=== PATIENT | male | born 1970 | race Caucasian/White ===

== ENCOUNTER 2016-10-01 02:13 | Emergency (ER) | payer MEDICAID ==
[~2016-10-01] VITALS: Ht 182.9 cm; Wt 141.0 kg
[2016-10-01] MEDS ORDERED: SODIUM CHLORIDE 0.9% 1,000 ML IV ONE (02:44)
[2016-10-01 02:58] LABS: BASOPHILS % 0.6 % (0.0-2.0); DIFFERENTIAL COMMENT 1; EOSINOPHILS % 2.6 % (0.0-5.0); HEMOGLOBIN. 9.5 g/dL (14.0-18.0); LYMPHOCYTES % 35.2 % (20.0-50.0); MEAN CORPUSCULAR HEMOGLOBIN 22.4 pg (28.0-32.0); MEAN CORPUSCULAR HGB CONC 31.5 g/dL (31.0-37.0); MEAN CORPUSCULAR VOLUME 70.9 fL (80.0-94.0); MEAN PLATELET VOLUME 6.5 fl (7.4-10.4); MONOCYTES % 6.4 % (2.0-8.0); NEUTROPHILS % 55.2 % (40.0-76.0); PLATELET 307 x1000/uL (130-400); RED BLOOD CELL COUNT 4.23 mill/uL (4.7-6.1); WHITE BLOOD COUNT 6.9 x1000/uL (4.5-11.0)
[2016-10-01 02:59] LABS: ADD RBC MORPHOLOGY YES
[2016-10-01 03:10] LABS: PLATELET ESTIMATE NORMAL
[2016-10-01 03:12] LABS: ANISOCYTOSIS 1+
[2016-10-01 03:13] LABS: INR 1.1; PROTHROMBIN TIME 11.4 sec
[2016-10-01 03:25] LABS: CLARITY URINE CLEAR (CLEAR); COLOR URINE YELLOW (YELLOW); GLUCOSE URINE NEGATIVE (NEGATIVE); KETONES URINE NEGATIVE (NEGATIVE); LEUKOCYTE ESTERASE URINE NEGATIVE (NEGATIVE); NITRITE URINE NEGATIVE (NEGATIVE); OCCULT BLOOD URINE NEGATIVE (NEGATIVE); PH URINE 5.5 (4.5-8.0); PROTEIN URINE NEGATIVE (NEGATIVE); SPECIFIC GRAVITY URINE 1.006 (1.005-1.030); UROBILINOGEN URINE 0.2 E.U./dL (0.2-1.0)
[2016-10-01 03:26] LABS: ALANINE AMINOTRANSFERASE 31 IU/L (13-61); ALBUMIN 3.5 g/dL (3.4-5.0); ANION GAP 14; CARBON DIOXIDE 27 mEq/L (21-32); CHLORIDE 99 mEq/L (98-107); ETHANOL BLOOD 182 mg/dL; INDEX HEMOLYSI 1 (1-3); INDEX ICTERIC 1 (1-4); INDEX LIPEMIC 1 (1-3); LIPASE 216 IU/L (73-393); UREA NITROGEN BLOOD 15 mg/dL (7-21); eGFR > 60 mL/min (>60)
[2016-10-01 04:54] VITALS: BP 117/71
[2016-10-01] MEDS ORDERED: IOHEXOL-300 100 ML BOTTLE ONE (11:20)
[2016-10-01] MEDS ORDERED: SODIUM CHLORIDE 0.9% 10ML VIAL ONE (11:20)
== END 2016-10-01 07:17 | disposition home or self-care (01) ==
LOC: EDUNIT# 02:13 → ER 02:13
DX: F10.129 Alcohol abuse with intoxication, unspecified (principal); I10 Essential (primary) hypertension; G20 Parkinson's disease; E11.9 Type 2 diabetes mellitus without complications; F12.10 Cannabis abuse, uncomplicated
CPT/HCPCS: 36415; 74177; 80053; 81003; 83690; 85025; 85610; 99285; A4216; C1893; G0482; J7030; Q9967; Z7610

== ENCOUNTER 2016-10-02 14:18 | Emergency (ER) | payer MEDICAID ==
[~2016-10-02] VITALS: Ht 177.8 cm; Wt 120.0 kg
[2016-10-02] MEDS ORDERED: ACETAMINOPHEN 325MG TABLET PO STA (16:23)
[2016-10-02] MEDS ORDERED: MAGNESIUM/ALUMINUM HYDROXIDE/SIMETHICONE 30ML UDC PO STA (16:23)
[2016-10-02] MEDS ORDERED: VISCOUS LIDOCAINE 2% 15 ML UDC PO STA (16:23)
[2016-10-02 17:52] VITALS: BP 124/64
== END 2016-10-02 17:58 | disposition home or self-care (01) ==
LOC: ER 14:41
DX: F10.129 Alcohol abuse with intoxication, unspecified (principal); R10.30 Lower abdominal pain, unspecified; I10 Essential (primary) hypertension; E11.9 Type 2 diabetes mellitus without complications; F12.10 Cannabis abuse, uncomplicated
CPT/HCPCS: 99284

== ENCOUNTER 2016-10-02 22:05 | Emergency (ER) | payer MEDICAID ==
[~2016-10-02] VITALS: Ht 185.4 cm; Wt 93.0 kg
[2016-10-03 00:34] LABS: CHLORIDE 109 mEq/L (98-107); INDEX HEMOLYSI 3 (1-3); INDEX ICTERIC 1 (1-4); INDEX LIPEMIC 1 (1-3)
[2016-10-03 00:44] LABS: ALANINE AMINOTRANSFERASE 24 IU/L (13-61); ALBUMIN 3.2 g/dL (3.4-5.0); ANION GAP 12; CALCIUM 8.1 mg/dL (8.5-10.1); CARBON DIOXIDE 25 mEq/L (21-32); ETHANOL BLOOD 204 mg/dL; LIPASE 161 IU/L (73-393); UREA NITROGEN BLOOD 9 mg/dL (7-21); eGFR > 60 mL/min (>60)
[2016-10-03] MEDS ORDERED: FAMOTIDINE 20MG TABLET PO ONE ×2 (01:15→06:30)
[2016-10-03 01:17] LABS: BASOPHILS % 0.5 % (0.0-2.0); EOSINOPHILS % 2.6 % (0.0-5.0); HEMATOCRIT. 27.9 % (42.0-52.0); HEMOGLOBIN. 8.9 g/dL (14.0-18.0); LYMPHOCYTES % 43.2 % (20.0-50.0); MEAN CORPUSCULAR HEMOGLOBIN 22.9 pg (28.0-32.0); MEAN CORPUSCULAR HGB CONC 31.9 g/dL (31.0-37.0); MEAN CORPUSCULAR VOLUME 71.7 fL (80.0-94.0); MEAN PLATELET VOLUME 6.6 fl (7.4-10.4); MONOCYTES % 8.6 % (2.0-8.0); NEUTROPHILS % 45.1 % (40.0-76.0); PLATELET 294 x1000/uL (130-400); RED BLOOD CELL COUNT 3.89 mill/uL (4.7-6.1); RED CELL DISTRIBUTION WIDTH 27.4 % (11.6-14.6)
[2016-10-03 01:21] LABS: CLARITY URINE CLEAR (CLEAR); COLOR URINE YELLOW (YELLOW); GLUCOSE URINE NEGATIVE (NEGATIVE); KETONES URINE NEGATIVE (NEGATIVE); LEUKOCYTE ESTERASE URINE NEGATIVE (NEGATIVE); NITRITE URINE NEGATIVE (NEGATIVE); OCCULT BLOOD URINE NEGATIVE (NEGATIVE); PROTEIN URINE NEGATIVE (NEGATIVE); SPECIFIC GRAVITY URINE 1.014 (1.005-1.030); UROBILINOGEN URINE 0.2 E.U./dL (0.2-1.0)
[2016-10-03 01:23] LABS: INR 1.1; PROTHROMBIN TIME 11.3 sec
[2016-10-03 01:25] LABS: DIFFERENTIAL COMMENT 1
[2016-10-03 01:31] LABS: *AMPHETAMINES SCREEN URINE NEGATIVE (NEGATIVE); *BARBITURATES SCREEN URINE NEGATIVE (NEGATIVE); *BENZODIAZEPINES SCREEN URINE PRESUMTIVE POSITIVE (NEGATIVE); *COCAINE SCREEN URINE NEGATIVE (NEGATIVE); CANNABINOID URINE SCREEN PRESUMTIVE POSITIVE (NEGATIVE); ECSTASY MDMA SCREEN URINE NEGATIVE (NEGATIVE); METHADONE URINE SCREEN NEGATIVE (NEGATIVE); OPIATES URINE SCREEN NEGATIVE (NEGATIVE); PHENCYCLIDINE URINE SCREEN NEGATIVE (NEGATIVE)
[2016-10-03] MEDS ORDERED: MAGNESIUM/ALUMINUM HYDROXIDE/SIMETHICONE 30ML UDC PO ONE (02:15)
[2016-10-03 05:44] LABS: BASOPHILS % 0.6 % (0.0-2.0); EOSINOPHILS % 3.7 % (0.0-5.0); HEMATOCRIT. 28.7 % (42.0-52.0); LYMPHOCYTES % 36.8 % (20.0-50.0); MEAN CORPUSCULAR HEMOGLOBIN 22.9 pg (28.0-32.0); MEAN CORPUSCULAR HGB CONC 31.4 g/dL (31.0-37.0); MEAN PLATELET VOLUME 6.7 fl (7.4-10.4); MONOCYTES % 10.5 % (2.0-8.0); NEUTROPHILS % 48.4 % (40.0-76.0); PLATELET 285 x1000/uL (130-400); RED BLOOD CELL COUNT 3.94 mill/uL (4.7-6.1); RED CELL DISTRIBUTION WIDTH 26.3 % (11.6-14.6); WHITE BLOOD COUNT 4.3 x1000/uL (4.5-11.0)
[2016-10-03 05:48] LABS: DIFFERENTIAL COMMENT 1
[2016-10-03] MEDS ORDERED: LORAZEPAM 2MG/ML CPJ IM ONE (06:45)
[2016-10-03] MEDS ORDERED: KETOROLAC 60MG/2ML VIAL IM ONE (06:45)
[2016-10-03 07:30] VITALS: BP 128/72
[2016-10-04] MEDS ORDERED: SODIUM CHLORIDE 0.9% 1,000 ML IV ONE (12:42)
[2016-10-04] MEDS ORDERED: ONDANSETRON HCL 4MG/2ML VIAL IV STA (12:42)
[2016-10-04] MEDS ORDERED: FOLIC ACID 1 MG, THIAMINE HCL 100 MG, MVI, ADULT NO.1 10 ML in DEXTROSE 5% WATER 1,000 ML IV ONE ×4 (12:45)
[2016-10-04 13:24] LABS: BASOPHILS % 0.6 % (0.0-2.0); EOSINOPHILS % 0.6 % (0.0-5.0); HEMATOCRIT. 29.1 % (42.0-52.0); HEMOGLOBIN. 9.3 g/dL (14.0-18.0); LYMPHOCYTES % 24.3 % (20.0-50.0); MEAN CORPUSCULAR HEMOGLOBIN 23.2 pg (28.0-32.0); MEAN CORPUSCULAR HGB CONC 31.9 g/dL (31.0-37.0); MEAN CORPUSCULAR VOLUME 72.7 fL (80.0-94.0); MEAN PLATELET VOLUME 6.2 fl (7.4-10.4); MONOCYTES % 8.8 % (2.0-8.0); NEUTROPHILS % 65.7 % (40.0-76.0); PLATELET 283 x1000/uL (130-400); RED CELL DISTRIBUTION WIDTH 26.3 % (11.6-14.6); WHITE BLOOD COUNT 6.8 x1000/uL (4.5-11.0)
[2016-10-04 13:25] LABS: ADD RBC MORPHOLOGY YES; DIFFERENTIAL COMMENT 1
[2016-10-04 13:30] LABS: INR 1.1; PROTHROMBIN TIME 11.4 sec
[2016-10-04 13:38] LABS: ACETAMINOPHEN < 2 ug/mL (10-30); ALANINE AMINOTRANSFERASE 22 IU/L (13-61); ALBUMIN 3.4 g/dL (3.4-5.0); ANION GAP 14; CALCIUM 8.3 mg/dL (8.5-10.1); CARBON DIOXIDE 26 mEq/L (21-32); CHLORIDE 106 mEq/L (98-107); CREATINE KINASE 250 IU/L (39-308); ETHANOL BLOOD 225 mg/dL; INDEX HEMOLYSI 1 (1-3); INDEX ICTERIC 1 (1-4); INDEX LIPEMIC 1 (1-3); LIPASE 164 IU/L (73-393); UREA NITROGEN BLOOD 10 mg/dL (7-21); eGFR > 60 mL/min (>60)
[2016-10-04 13:44] LABS: ANISOCYTOSIS 2+; HYPOCHROMASIA 1+; PLATELET ESTIMATE NORMAL
[2016-10-04 13:45] LABS: THYROID STIMULATING HORMONE 0.56 uIU/mL (0.36-3.74)
== END 2016-10-03 07:55 | disposition home or self-care (01) ==
LOC: ER 22:05
DX: F10.129 Alcohol abuse with intoxication, unspecified (principal); R10.13 Epigastric pain; R11.2 Nausea with vomiting, unspecified; F41.9 Anxiety disorder, unspecified; E11.9 Type 2 diabetes mellitus without complications; I10 Essential (primary) hypertension; G20 Parkinson's disease; F12.10 Cannabis abuse, uncomplicated; Y90.8 Blood alcohol level of 240 mg/100 ml or more
CPT/HCPCS: 36415; 71010; 76700; 80053; 80305; 81003; 82962; 83690; 85025; 85610; 93005; 96372; 99285; G0482; J1885; J2060; Z7610

== ENCOUNTER 2016-10-03 12:02 | Emergency (ER) | payer MEDICAID ==
[~2016-10-03] VITALS: Ht 180.3 cm; Wt 160.0 kg
[2016-10-03] MEDS ORDERED: LORAZEPAM 1MG TABLET PO ONE ×2 (13:00→14:45)
[2016-10-04 05:00] VITALS: BP 140/88
== END 2016-10-04 05:50 | disposition home or self-care (01) ==
LOC: ER 12:33
DX: F10.129 Alcohol abuse with intoxication, unspecified (principal); E11.9 Type 2 diabetes mellitus without complications; I10 Essential (primary) hypertension; F12.10 Cannabis abuse, uncomplicated
CPT/HCPCS: 36415; 99283; G0482; 99284

== ENCOUNTER 2016-10-05 01:01 | Emergency (ER) | payer MEDICAID ==
[~2016-10-05] VITALS: Ht 175.3 cm; Wt 122.0 kg
[2016-10-05 06:40] VITALS: BP 97/55
== END 2016-10-05 08:47 | disposition left against medical advice (07) ==
LOC: ER 01:09
DX: F10.129 Alcohol abuse with intoxication, unspecified (principal); Z87.19 Personal history of other diseases of the digestive system
CPT/HCPCS: 36415; 99283; G0482

== ENCOUNTER 2016-10-05 11:22 | Emergency (ER) | payer MEDICAID ==
[~2016-10-05] VITALS: Ht 175.3 cm; Wt 110.0 kg
[2016-10-05 12:41] VITALS: BP 128/78
== END 2016-10-05 15:33 | disposition home or self-care (01) ==
LOC: ER 11:33
DX: F10.129 Alcohol abuse with intoxication, unspecified (principal); Y90.8 Blood alcohol level of 240 mg/100 ml or more; Z87.19 Personal history of other diseases of the digestive system
CPT/HCPCS: 36415; 99283; G0482

== ENCOUNTER 2016-10-05 18:30 | Emergency (ER) | payer MEDICAID ==
[~2016-10-05] VITALS: Ht 177.8 cm; Wt 102.0 kg
[2016-10-05] MEDS ORDERED: SODIUM CHLORIDE 0.9% 1,000 ML IV ONE (19:37)
[2016-10-06 04:47] VITALS: BP 110/64
== END 2016-10-06 06:10 | disposition home or self-care (01) ==
LOC: ER 18:30
DX: F10.229 Alcohol dependence with intoxication, unspecified (principal); Y90.8 Blood alcohol level of 240 mg/100 ml or more; F12.10 Cannabis abuse, uncomplicated; F19.10 Other psychoactive substance abuse, uncomplicated; D50.9 Iron deficiency anemia, unspecified; E83.51 Hypocalcemia
CPT/HCPCS: 99283; J7030

== ENCOUNTER 2016-10-06 09:21 | Emergency (ER) | payer MEDICAID ==
[~2016-10-06] VITALS: Ht 177.8 cm; Wt 120.0 kg
[2016-10-06 10:00] VITALS: BP 125/80
[2016-10-06 10:45] LABS: BASOPHILS % 0.5 % (0.0-2.0); EOSINOPHILS % 1.5 % (0.0-5.0); HEMATOCRIT. 32.6 % (42.0-52.0); LYMPHOCYTES % 31.6 % (20.0-50.0); MEAN CORPUSCULAR HEMOGLOBIN 22.3 pg (28.0-32.0); MEAN CORPUSCULAR HGB CONC 30.8 g/dL (31.0-37.0); MEAN CORPUSCULAR VOLUME 72.4 fL (80.0-94.0); MEAN PLATELET VOLUME 6.1 fl (7.4-10.4); MONOCYTES % 11.4 % (2.0-8.0); PLATELET 327 x1000/uL (130-400); RED CELL DISTRIBUTION WIDTH 26.7 % (11.6-14.6); WHITE BLOOD COUNT 4.6 x1000/uL (4.5-11.0)
[2016-10-06 10:48] LABS: CHLORIDE 107 mEq/L (98-107); INDEX HEMOLYSI 1 (1-3); INDEX ICTERIC 1 (1-4); INDEX LIPEMIC 1 (1-3)
[2016-10-06 10:58] LABS: ALANINE AMINOTRANSFERASE 30 IU/L (13-61); ALBUMIN 3.7 g/dL (3.4-5.0); ANION GAP 12; CALCIUM 8.9 mg/dL (8.5-10.1); CARBON DIOXIDE 31 mEq/L (21-32); ETHANOL BLOOD 296 mg/dL; UREA NITROGEN BLOOD 6 mg/dL (7-21); eGFR > 60 mL/min (>60)
[2016-10-06 11:10] LABS: ADD RBC MORPHOLOGY YES; DIFFERENTIAL COMMENT 1
[2016-10-06 11:12] LABS: ANISOCYTOSIS 2+; PLATELET ESTIMATE NORMAL
== END 2016-10-06 11:58 | disposition left against medical advice (07) ==
LOC: ER 09:24
DX: F10.229 Alcohol dependence with intoxication, unspecified (principal); R03.0 Elevated blood-pressure reading, without diagnosis of hypertension; Z87.19 Personal history of other diseases of the digestive system
CPT/HCPCS: 36415; 80053; 85025; 99284; G0482

== ENCOUNTER 2016-10-06 13:44 | Emergency (ER) | payer MEDICAID ==
[~2016-10-06] VITALS: Ht 177.8 cm; Wt 120.0 kg
[2016-10-06 13:51] VITALS: BP 122/84
== END 2016-10-06 19:30 | disposition left against medical advice (07) ==
LOC: ER 14:02
DX: F10.229 Alcohol dependence with intoxication, unspecified (principal); Z53.21 Procedure and treatment not carried out due to patient leaving prior to being seen by health care provider

== ENCOUNTER 2018-12-24 19:21 | Emergency (ER) | payer MEDICAID ==
[~2018-12-24] VITALS: Ht 177.8 cm; Wt 125.0 kg
[~2018-12-24 19:21] MED LIST: ALPR0.5T PO; BUSP-29 PO; CYAN500T4 PO; FERR325T6 PO; FISH PO; FLUO20CA33 MT; GABA-290 PO; MULT-1203 PO; PROP20TA7 PO; REQ2 PO
[2018-12-24] MEDS ORDERED: SODIUM CHLORIDE 0.9% 1,000 ML IV ONE ×2 (19:39→20:17)
[2018-12-24] MEDS ORDERED: MORPHINE SULFATE 4 MG/ML CPJ (NOT FOR IM USE) IV STA (20:17)
[2018-12-24] MEDS ORDERED: ONDANSETRON HCL 4MG/2ML INJ IV STA (20:17)
[2018-12-24] MEDS ORDERED: DIATR MEGLU/DIATRIZOATE SOLN 30ML ONE (20:29)
[2018-12-24 20:57] LABS: CLARITY URINE CLEAR (CLEAR); COLOR URINE YELLOW (YELLOW); KETONES URINE NEGATIVE (NEGATIVE); LEUKOCYTE ESTERASE URINE NEGATIVE (NEGATIVE); NITRITE URINE NEGATIVE (NEGATIVE); OCCULT BLOOD URINE NEGATIVE (NEGATIVE); PH URINE 5.5 (4.5-8.0); PROTEIN URINE NEGATIVE (NEGATIVE); SPECIFIC GRAVITY URINE 1.004 (1.005-1.030); UROBILINOGEN URINE 0.2 E.U./dL (0.2-1.0)
[2018-12-24 21:07] LABS: *AMPHETAMINES SCREEN URINE NEGATIVE (NEGATIVE); *BARBITURATES SCREEN URINE PRESUMTIVE POSITIVE (NEGATIVE); *BENZODIAZEPINES SCREEN URINE PRESUMTIVE POSITIVE (NEGATIVE); *COCAINE SCREEN URINE NEGATIVE (NEGATIVE); METHADONE URINE SCREEN NEGATIVE (NEGATIVE)
[2018-12-24 21:08] LABS: CANNABINOID URINE SCREEN NEGATIVE (NEGATIVE); OPIATES URINE SCREEN PRESUMTIVE POSITIVE (NEGATIVE); PHENCYCLIDINE URINE SCREEN NEGATIVE (NEGATIVE)
[2018-12-25 00:36] LABS: CHLORIDE 106 mEq/L (98-107)
[2018-12-25 00:39] LABS: ETHANOL BLOOD 33 mg/dL
[2018-12-25] MEDS ORDERED: FAMOTIDINE 20MG/2ML VIAL IV ONE (02:15)
[2018-12-25 05:07] LABS: BASOPHILS % 0.5 % (0.0-2.0); EOSINOPHILS % 7.3 % (0.0-5.0); HEMATOCRIT. 35.1 % (42.0-52.0); HEMOGLOBIN. 11.8 g/dL (14.0-18.0); LYMPHOCYTES % 35.4 % (20.0-50.0); MEAN CORPUSCULAR HEMOGLOBIN 27.8 pg (28.0-32.0); MEAN CORPUSCULAR VOLUME 82.4 fL (80.0-94.0); MEAN PLATELET VOLUME 6.8 fl (7.4-10.4); MONOCYTES % 10.3 % (2.0-8.0); NEUTROPHILS % 46.5 % (40.0-76.0); PLATELET 173 x1000/uL (130-400); RED BLOOD CELL COUNT 4.26 mill/uL (4.7-6.1); RED CELL DISTRIBUTION WIDTH 15.8 % (11.6-14.6)
[2018-12-25] MEDS ORDERED: MORPHINE SULFATE 4 MG/ML CPJ (NOT FOR IM USE) IV ONE (05:30)
[2018-12-25] MEDS ORDERED: ONDANSETRON HCL 4MG/2ML INJ IV ONE (05:30)
[2018-12-25] MEDS ORDERED: ACETAMINOPHEN 325MG TABLET PO PRN (05:45)
[2018-12-25 06:06] VITALS: BP 119/62
== END 2018-12-26 14:34 | disposition left against medical advice (07) ==
LOC: ER 19:21 → EDBEDREQTM 12-25 06:09 → EDBEDREQ 12-25 06:09 → ENRESERV 12-25 12:34 → CANRESERV 12-25 13:59 → CANBEDREQ 12-25 14:50 → ER 12-26 14:34
DX: F10.229 Alcohol dependence with intoxication, unspecified (principal); F13.10 Sedative, hypnotic or anxiolytic abuse, uncomplicated; F11.10 Opioid abuse, uncomplicated; I10 Essential (primary) hypertension; G20 Parkinson's disease; Z79.899 Other long term (current) drug therapy; Y90.1 Blood alcohol level of 20-39 mg/100 ml
CPT/HCPCS: 36415; 71045; 74176; 80305; 81003; 93005; 96374; 96375; 96376; 99284; J2270; J2405; J3490; J7030; Q9963

== ENCOUNTER 2019-04-23 17:36 | Emergency (ER) | payer MEDICAID ==
[~2019-04-23] VITALS: Ht 188 cm; Wt 111.0 kg
[~2019-04-23 17:36] MED LIST changes: -CYAN500T4 PO; +CYAN500T66 PO
[2019-04-23] MEDS ORDERED: FAMOTIDINE 20MG/2ML VIAL IV ONE (19:00)
[2019-04-23] MEDS ORDERED: SODIUM CHLORIDE 0.9% 1,000 ML IV ONE (19:00)
[2019-04-23 19:19] LABS: CLARITY URINE CLEAR (CLEAR); COLOR URINE YELLOW (YELLOW); KETONES URINE NEGATIVE (NEGATIVE); LEUKOCYTE ESTERASE URINE NEGATIVE (NEGATIVE); NITRITE URINE NEGATIVE (NEGATIVE); OCCULT BLOOD URINE NEGATIVE (NEGATIVE); PROTEIN URINE NEGATIVE (NEGATIVE); SPECIFIC GRAVITY URINE 1.006 (1.005-1.030); UROBILINOGEN URINE 0.2 E.U./dL (0.2-1.0)
[2019-04-23 23:29] LABS: CHLORIDE 114 mEq/L (98-107)
[2019-04-23 23:30] LABS: BASOPHILS % 0.4 % (0.0-2.0); EOSINOPHILS % 5.9 % (0.0-5.0); HEMATOCRIT. 35.4 % (42.0-52.0); HEMOGLOBIN. 11.7 g/dL (14.0-18.0); LYMPHOCYTES % 40.9 % (20.0-50.0); MEAN CORPUSCULAR HEMOGLOBIN 29.6 pg (28.0-32.0); MEAN CORPUSCULAR VOLUME 89.2 fL (80.0-94.0); MEAN PLATELET VOLUME 6.4 fl (7.4-10.4); MONOCYTES % 10.6 % (2.0-8.0); NEUTROPHILS % 42.2 % (40.0-76.0); PLATELET 163 x1000/uL (130-400); RED BLOOD CELL COUNT 3.97 mill/uL (4.7-6.1); RED CELL DISTRIBUTION WIDTH 17.1 % (11.6-14.6)
[2019-04-23 23:34] LABS: ETHANOL BLOOD 108 mg/dL
[2019-04-24 01:24] VITALS: BP 122/75
== END 2019-04-24 01:41 | disposition home or self-care (01) ==
LOC: ER 17:36
DX: F10.129 Alcohol abuse with intoxication, unspecified (principal); E86.0 Dehydration; I11.9 Hypertensive heart disease without heart failure; A15.9 Respiratory tuberculosis unspecified; Z79.899 Other long term (current) drug therapy; Y90.9 Presence of alcohol in blood, level not specified
CPT/HCPCS: 36415; 80053; 80320; 81003; 82962; 83690; 85025; 96361; 96374; 99283; J3490; J7030; G0480

== ENCOUNTER 2019-04-24 03:19 | Emergency (ER) | payer MEDICAID ==
[~2019-04-24] VITALS: Ht 185.4 cm; Wt 120.0 kg
[2019-04-24 03:54] VITALS: BP 108/53
== END 2019-04-24 05:15 | disposition home or self-care (01) ==
LOC: ER 03:19
DX: F10.239 Alcohol dependence with withdrawal, unspecified (principal); G20 Parkinson's disease; I11.9 Hypertensive heart disease without heart failure; A15.9 Respiratory tuberculosis unspecified; R56.9 Unspecified convulsions; Y90.9 Presence of alcohol in blood, level not specified
CPT/HCPCS: 99283

== ENCOUNTER 2019-04-25 15:22 | Emergency (ER) | payer MEDICAID ==
[~2019-04-25] VITALS: Ht 175.3 cm; Wt 140.0 kg
[2019-04-25] MEDS ORDERED: FAMOTIDINE 20MG/2ML VIAL IV STA (15:56)
[2019-04-25] MEDS ORDERED: SODIUM CHLORIDE 0.9% 1,000 ML IV ONE (15:56)
[2019-04-25 16:37] LABS: BASOPHILS % 0.2 % (0.0-2.0); EOSINOPHILS % 2.1 % (0.0-5.0); HEMATOCRIT. 31.8 % (42.0-52.0); HEMOGLOBIN. 10.8 g/dL (14.0-18.0); LYMPHOCYTES % 16.8 % (20.0-50.0); MEAN CORPUSCULAR HEMOGLOBIN 29.7 pg (28.0-32.0); MEAN CORPUSCULAR VOLUME 87.8 fL (80.0-94.0); MEAN PLATELET VOLUME 6.6 fl (7.4-10.4); MONOCYTES % 11.1 % (2.0-8.0); NEUTROPHILS % 69.8 % (40.0-76.0); PLATELET 147 x1000/uL (130-400); RED BLOOD CELL COUNT 3.62 mill/uL (4.7-6.1); RED CELL DISTRIBUTION WIDTH 16.5 % (11.6-14.6)
[2019-04-25 16:40] LABS: CHLORIDE 106 mEq/L (98-107)
[2019-04-25 16:42] LABS: PROTHROMBIN TIME 10.6 sec (9.6-11.0)
[2019-04-25] MEDS ORDERED: KCL 10MEQ/50ML PREMIX 50 ML IV ONE (17:00)
[2019-04-25] MEDS ORDERED: POTASSIUM CHLORIDE 20MEQ TABLET SR PO ONE (17:00)
[2019-04-25 22:50] VITALS: BP 118/70
== END 2019-04-25 22:53 | disposition home or self-care (01) ==
LOC: ER 15:22
DX: F10.229 Alcohol dependence with intoxication, unspecified (principal); Y90.7 Blood alcohol level of 200-239 mg/100 ml; K29.20 Alcoholic gastritis without bleeding; E87.6 Hypokalemia; G20 Parkinson's disease
CPT/HCPCS: 36415; 71045; 80053; 80320; 83690; 85025; 85610; 96365; 96375; 99284; J3480; J3490; J7030; G0480

== ENCOUNTER 2019-04-26 15:52 | Emergency (ER) | payer MEDICAID ==
[~2019-04-26] VITALS: Ht 167.6 cm; Wt 170.0 kg
[2019-04-26] MEDS ORDERED: ONDANSETRON HCL 4MG/2ML INJ IV STA (18:16)
[2019-04-26] MEDS ORDERED: SODIUM CHLORIDE 0.9% 1,000 ML IV ONE (18:16)
[2019-04-26] MEDS ORDERED: MORPHINE SULFATE 4 MG/ML CPJ (NOT FOR IM USE) IV STA (18:16)
[2019-04-26] MEDS ORDERED: BACITRACIN ZINC OINT UDPKT TOP ONE (18:30)
[2019-04-26] MEDS ORDERED: LEVETIRACETAM 500MG PREMIX 100 ML IV ONE (18:30)
[2019-04-26 19:14] LABS: CHLORIDE 112 mEq/L (98-107)
[2019-04-26 19:18] LABS: ETHANOL BLOOD 207 mg/dL
[2019-04-26 19:23] LABS: CREATINE KINASE 545 IU/L (39-308)
[2019-04-26 19:30] LABS: CARBAMAZEPINE < 0.5 ug/mL (4-12); PHENOBARBITAL < 2.1 ug/mL (15.0-40.0); VALPROIC ACID < 3.0 ug/mL (50-100)
[2019-04-26 19:40] LABS: BASOPHILS % 0.7 % (0.0-2.0); EOSINOPHILS % 1.9 % (0.0-5.0); HEMATOCRIT. 35.3 % (42.0-52.0); HEMOGLOBIN. 11.8 g/dL (14.0-18.0); MEAN CORPUSCULAR HEMOGLOBIN 29.4 pg (28.0-32.0); MEAN PLATELET VOLUME 6.1 fl (7.4-10.4); MONOCYTES % 13.4 % (2.0-8.0); PLATELET 147 x1000/uL (130-400); RED BLOOD CELL COUNT 4.01 mill/uL (4.7-6.1); RED CELL DISTRIBUTION WIDTH 17.1 % (11.6-14.6)
[2019-04-26 21:27] VITALS: BP 132/61
== END 2019-04-26 21:59 | disposition home or self-care (01) ==
LOC: ER 15:52
DX: S00.83XA Contusion of other part of head, initial encounter (principal); T51.0X1A Toxic effect of ethanol, accidental (unintentional), initial encounter; E11.9 Type 2 diabetes mellitus without complications; I11.9 Hypertensive heart disease without heart failure; Z98.890 Other specified postprocedural states; Z79.899 Other long term (current) drug therapy; X58.XXXA Exposure to other specified factors, initial encounter; Y93.89 Activity, other specified; Y92.89 Other specified places as the place of occurrence of the external cause; Y99.8 Other external cause status; Y90.8 Blood alcohol level of 240 mg/100 ml or more
CPT/HCPCS: 36415; 70450; 80053; 80156; 80165; 80184; 80185; 80320; 82550; 84443; 85025; 96365; 96375; 99284; J1953; J2270; J2405; J7030; G0480

== ENCOUNTER 2019-05-14 20:19 | Inpatient (IN) | payer MEDICAID ==
[~2019-05-14] VITALS: Ht 182.9 cm; Wt 113.9 kg
[2019-05-14 23:13] LABS: HEMATOCRIT. 36.3 % (42.0-52.0); HEMOGLOBIN. 12.2 g/dL (14.0-18.0); MEAN CORPUSCULAR HEMOGLOBIN 29.2 pg (28.0-32.0); MEAN CORPUSCULAR VOLUME 86.7 fL (80.0-94.0); MEAN PLATELET VOLUME 7.1 fl (7.4-10.4); PLATELET 274 x1000/uL (130-400); RED BLOOD CELL COUNT 4.19 mill/uL (4.7-6.1); RED CELL DISTRIBUTION WIDTH 16.2 % (11.6-14.6)
[2019-05-14] MEDS ORDERED: MORPHINE SULFATE 4 MG/ML CPJ (NOT FOR IM USE) IV STA (23:16)
[2019-05-14] MEDS ORDERED: METOCLOPRAMIDE HCL 10MG/2ML VIAL IV STA (23:16)
[2019-05-14] MEDS ORDERED: SODIUM CHLORIDE 0.9% 1,000 ML IV ONE (23:16)
[2019-05-14 23:18] LABS: CLARITY URINE CLEAR (CLEAR); COLOR URINE DARK YELLOW (YELLOW); KETONES URINE 1+ (NEGATIVE); LEUKOCYTE ESTERASE URINE NEGATIVE (NEGATIVE); NITRITE URINE NEGATIVE (NEGATIVE); OCCULT BLOOD URINE NEGATIVE (NEGATIVE); PROTEIN URINE NEGATIVE (NEGATIVE)
[2019-05-14 23:20] LABS: CHLORIDE 109 mEq/L (98-107)
[2019-05-14 23:22] LABS: INR 1.1; PROTHROMBIN TIME 11.3 sec (9.6-11.0)
[2019-05-14 23:24] LABS: ETHANOL BLOOD < 10 mg/dL
[2019-05-14] MEDS ORDERED: DIATR MEGLU/DIATRIZOATE SOLN 30ML ONE (23:30)
[2019-05-14 23:31] LABS: *AMPHETAMINES SCREEN URINE NEGATIVE (NEGATIVE); *BARBITURATES SCREEN URINE NEGATIVE (NEGATIVE); *BENZODIAZEPINES SCREEN URINE PRESUMTIVE POSITIVE (NEGATIVE); *COCAINE SCREEN URINE NEGATIVE (NEGATIVE)
[2019-05-14 23:32] LABS: CANNABINOID URINE SCREEN NEGATIVE (NEGATIVE); METHADONE URINE SCREEN NEGATIVE (NEGATIVE); OPIATES URINE SCREEN NEGATIVE (NEGATIVE); PHENCYCLIDINE URINE SCREEN NEGATIVE (NEGATIVE)
[2019-05-15] MEDS ORDERED: IOHEXOL-300 100 ML BOTTLE ONE (02:54)
[2019-05-15 03:36] LABS: PLATELET ESTIMATE NORMAL
[2019-05-15] MEDS ORDERED: MORPHINE SULFATE 4 MG/ML CPJ (NOT FOR IM USE) IV ONE (04:00)
[2019-05-15] MEDS ORDERED: ONDANSETRON HCL 4MG/2ML INJ IV ONE (04:00)
[2019-05-15] MEDS ORDERED: BISACODYL 10MG SUPP PR NR (08:30)
[2019-05-15] MEDS: MORPHINE SULFATE 2 MG/ML CPJ (NOT FOR IM USE) IV PRN ×3 (10:53→21:38)
[2019-05-15 12:00] VITALS: BP 123/68
[2019-05-15] MEDS ORDERED: HALOPERIDOL LACTATE 5MG/ML VIAL IM PRN (12:15)
[2019-05-15 12:24] VITALS: BP 127/79
[2019-05-15] MEDS ORDERED: [UNRECOGNIZED DRUG - OTHER] IM SCH (12:45)
[2019-05-15] MEDS ORDERED: INFLUENZA VIRUS VACCINE(AFLURIA) 0.5ML SYR IM ONE (12:45)
[2019-05-15] MEDS: CARBIDOPA/LEVODOPA 25/250MG TABLET PO SCH ×2 (14:34→21:39)
[2019-05-15] MEDS: FLUOXETINE HCL 20MG CAPSULE PO SCH (14:34)
[2019-05-15 16:00] VITALS: BP 127/69
[2019-05-15] MEDS: GABAPENTIN 100MG CAPSULE PO SCH (17:15)
[2019-05-15] MEDS: DEXT 5%/0.45% NACL 1000ML 1,000 ML IV SCH (18:57)
[2019-05-15] MEDS: BUSPIRONE HCL 10MG TABLET PO SCH (21:39)
[2019-05-16] MEDS: MORPHINE SULFATE 2 MG/ML CPJ (NOT FOR IM USE) IV PRN ×3 (01:39→20:17)
[2019-05-16] MEDS: CARBIDOPA/LEVODOPA 25/250MG TABLET PO SCH ×3 (06:02→22:06)
[2019-05-16 06:18] LABS: BASOPHILS % 0.8 % (0.0-2.0); EOSINOPHILS % 2.6 % (0.0-5.0); HEMOGLOBIN. 10.5 g/dL (14.0-18.0); MEAN CORPUSCULAR HEMOGLOBIN 29.4 pg (28.0-32.0); MEAN CORPUSCULAR VOLUME 87.3 fL (80.0-94.0); MEAN PLATELET VOLUME 7.5 fl (7.4-10.4); NEUTROPHILS % 62.6 % (40.0-76.0); PLATELET 222 x1000/uL (130-400); RED BLOOD CELL COUNT 3.55 mill/uL (4.7-6.1)
[2019-05-16 06:52] LABS: CHLORIDE 109 mEq/L (98-107)
[2019-05-16 08:00] VITALS: BP 159/79
[2019-05-16] MEDS ORDERED: MORPHINE SULFATE 4 MG/ML CPJ (NOT FOR IM USE) IV PRN (08:15)
[2019-05-16] MEDS: BUSPIRONE HCL 10MG TABLET PO SCH ×2 (09:00→21:22)
[2019-05-16] MEDS: GABAPENTIN 100MG CAPSULE PO SCH ×2 (09:00→16:57)
[2019-05-16] MEDS: FLUOXETINE HCL 20MG CAPSULE PO SCH (09:00)
[2019-05-16 12:00] VITALS: BP 127/82
[2019-05-16] MEDS ORDERED: POTASSIUM CHLORIDE INJ 40 MEQ in DEXT 5% WATER 500 ML IV SCH (12:00)
[2019-05-16] MEDS: HYDROMORPHONE HCL/PF 2MG/ML CPJ IV PRN (15:12)
[2019-05-16 16:00] VITALS: BP 131/77
[2019-05-16] MEDS ORDERED: MINERAL OIL ENEMA 133ML PR NR (18:30)
[2019-05-16 20:00] VITALS: BP 129/73
[2019-05-17] VITALS: BP 152/55
[2019-05-17] MEDS: MORPHINE SULFATE 2 MG/ML CPJ (NOT FOR IM USE) IV PRN ×2 (00:21→04:36)
[2019-05-17 04:00] VITALS: BP 129/60
[2019-05-17] MEDS: DEXT 5%/0.45% NACL 1000ML 1,000 ML IV SCH (04:37)
[2019-05-17] MEDS: CARBIDOPA/LEVODOPA 25/250MG TABLET PO SCH ×3 (06:01→22:08)
[2019-05-17 06:05] LABS: BASOPHILS % 0.4 % (0.0-2.0); HEMATOCRIT. 34.1 % (42.0-52.0); HEMOGLOBIN. 11.6 g/dL (14.0-18.0); LYMPHOCYTES % 30.4 % (20.0-50.0); MEAN CORPUSCULAR HEMOGLOBIN 29.4 pg (28.0-32.0); MEAN CORPUSCULAR VOLUME 86.4 fL (80.0-94.0); MEAN PLATELET VOLUME 7.2 fl (7.4-10.4); MONOCYTES % 8.3 % (2.0-8.0); NEUTROPHILS % 57.9 % (40.0-76.0); PLATELET 213 x1000/uL (130-400); RED BLOOD CELL COUNT 3.94 mill/uL (4.7-6.1)
[2019-05-17 06:57] LABS: CHLORIDE 106 mEq/L (98-107)
[2019-05-17 08:00] VITALS: BP 140/89
[2019-05-17] MEDS: GABAPENTIN 100MG CAPSULE PO SCH ×2 (08:08→17:21)
[2019-05-17] MEDS: BUSPIRONE HCL 10MG TABLET PO SCH ×2 (08:08→22:08)
[2019-05-17] MEDS: FLUOXETINE HCL 20MG CAPSULE PO SCH (08:08)
[2019-05-17] MEDS: ACETAMINOPHEN 325MG TABLET PO PRN (08:27)
[2019-05-17] MEDS: PIPERACILLIN/TAZOBACTAM 3.375 G in DEXT 5% WATER 100 ML IV SCH ×3 (11:20→20:37)
[2019-05-17] MEDS: HYDROMORPHONE HCL/PF 2MG/ML CPJ IV PRN ×3 (11:21→20:40)
[2019-05-17 12:00] VITALS: BP 126/74
[2019-05-17] MEDS ORDERED: PIPERACILLIN/TAZOBACTAM 3.375GM/50ML PREMIX IV SCH (14:00)
[2019-05-17 16:00] VITALS: BP 123/93
[2019-05-17 20:00] VITALS: BP 120/84
[2019-05-18] VITALS: BP 120/80
[2019-05-18] MEDS: MORPHINE SULFATE 2 MG/ML CPJ (NOT FOR IM USE) IV PRN (00:43)
[2019-05-18] MEDS: PIPERACILLIN/TAZOBACTAM 3.375 G in DEXT 5% WATER 100 ML IV SCH ×4 (03:02→20:18)
[2019-05-18 04:00] VITALS: BP 125/82
[2019-05-18] MEDS: HYDROMORPHONE HCL/PF 2MG/ML CPJ IV PRN ×4 (04:52→18:14)
[2019-05-18] MEDS: CARBIDOPA/LEVODOPA 25/250MG TABLET PO SCH ×3 (05:01→22:31)
[2019-05-18 06:03] LABS: CHLORIDE 102 mEq/L (98-107)
[2019-05-18 06:19] LABS: BASOPHILS % 0.7 % (0.0-2.0); EOSINOPHILS % 3.3 % (0.0-5.0); HEMATOCRIT. 35.1 % (42.0-52.0); LYMPHOCYTES % 25.3 % (20.0-50.0); MEAN CORPUSCULAR HEMOGLOBIN 29.5 pg (28.0-32.0); MEAN CORPUSCULAR VOLUME 86.1 fL (80.0-94.0); MEAN PLATELET VOLUME 7.3 fl (7.4-10.4); MONOCYTES % 9.6 % (2.0-8.0); NEUTROPHILS % 61.1 % (40.0-76.0); PLATELET 230 x1000/uL (130-400); RED BLOOD CELL COUNT 4.08 mill/uL (4.7-6.1); RED CELL DISTRIBUTION WIDTH 15.5 % (11.6-14.6)
[2019-05-18] MEDS: DEXT 5%/0.45% NACL 1000ML 1,000 ML IV SCH ×2 (06:30→16:34)
[2019-05-18 08:00] VITALS: BP 157/89
[2019-05-18] MEDS: BUSPIRONE HCL 10MG TABLET PO SCH ×2 (09:00→20:19)
[2019-05-18] MEDS: FLUOXETINE HCL 20MG CAPSULE PO SCH (09:00)
[2019-05-18] MEDS: GABAPENTIN 100MG CAPSULE PO SCH ×2 (09:00→16:36)
[2019-05-18] MEDS: FAMOTIDINE 20MG TABLET PO SCH ×2 (10:14→20:18)
[2019-05-18 12:00] VITALS: BP 133/88
[2019-05-18] MEDS ORDERED: VANCOMYCIN 2,000 MG in DEXT 5% WATER 500 ML IV NR (15:30)
[2019-05-18 16:00] VITALS: BP 138/91
[2019-05-18] MEDS: ONDANSETRON HCL 4MG/2ML INJ IV PRN (16:35)
[2019-05-18 20:00] VITALS: BP 121/80
[2019-05-18] MEDS: VANCOMYCIN 1250MG in DEXTROSE 5% WATER 250ML IV SCH (22:31)
[2019-05-19] VITALS: BP 127/87
[2019-05-19] MEDS: PIPERACILLIN/TAZOBACTAM 3.375 G in DEXT 5% WATER 100 ML IV SCH ×4 (02:47→15:19)
[2019-05-19 04:00] VITALS: BP 135/77
[2019-05-19] MEDS: CARBIDOPA/LEVODOPA 25/250MG TABLET PO SCH ×3 (05:39→22:56)
[2019-05-19] MEDS: ACETAMINOPHEN 325MG TABLET PO PRN ×2 (05:40→16:17)
[2019-05-19] MEDS: HYDROMORPHONE HCL/PF 2MG/ML CPJ IV PRN ×2 (06:13→13:50)
[2019-05-19 08:00] VITALS: BP 138/82
[2019-05-19] MEDS: GABAPENTIN 100MG CAPSULE PO SCH ×2 (08:23→16:17)
[2019-05-19] MEDS: FAMOTIDINE 20MG TABLET PO SCH ×2 (08:23→20:27)
[2019-05-19] MEDS: BUSPIRONE HCL 10MG TABLET PO SCH ×2 (08:23→20:27)
[2019-05-19] MEDS: FLUOXETINE HCL 20MG CAPSULE PO SCH (08:23)
[2019-05-19] MEDS: VANCOMYCIN 1250MG in DEXTROSE 5% WATER 250ML IV SCH ×2 (08:23→16:18)
[2019-05-19] MEDS: ONDANSETRON HCL 4MG/2ML INJ IV PRN (10:07)
[2019-05-19] MEDS: DEXT 5%/0.45% NACL 1000ML 1,000 ML IV SCH (11:59)
[2019-05-19 12:00] VITALS: BP 124/84
[2019-05-19 16:00] VITALS: BP 153/91
[2019-05-19 16:07] LABS: BASOPHILS % 0.4 % (0.0-2.0); EOSINOPHILS % 1.3 % (0.0-5.0); HEMATOCRIT. 38.1 % (42.0-52.0); HEMOGLOBIN. 12.9 g/dL (14.0-18.0); LYMPHOCYTES % 7.4 % (20.0-50.0); MEAN CORPUSCULAR HEMOGLOBIN 28.9 pg (28.0-32.0); MEAN CORPUSCULAR VOLUME 85.5 fL (80.0-94.0); MEAN PLATELET VOLUME 7.6 fl (7.4-10.4); MONOCYTES % 10.6 % (2.0-8.0); NEUTROPHILS % 80.3 % (40.0-76.0); PLATELET 216 x1000/uL (130-400); RED BLOOD CELL COUNT 4.45 mill/uL (4.7-6.1); RED CELL DISTRIBUTION WIDTH 15.4 % (11.6-14.6)
[2019-05-19] MEDS: POTASSIUM CHLORIDE 20MEQ TABLET SR PO SCH ×2 (17:21→20:27)
[2019-05-19] MEDS: METOCLOPRAMIDE HCL 10MG/2ML VIAL IV SCH (17:21)
[2019-05-19 20:00] VITALS: BP 131/85
[2019-05-19] MEDS: LACTULOSE 20G/30ML UDC PO SCH (22:57)
[2019-05-20] VITALS: BP 156/85
[2019-05-20] MEDS: POTASSIUM CHLORIDE 20MEQ TABLET SR PO SCH ×2 (00:48→02:00)
[2019-05-20] MEDS: METOCLOPRAMIDE HCL 10MG/2ML VIAL IV SCH ×3 (00:50→14:52)
[2019-05-20 04:00] VITALS: BP 150/85
[2019-05-20] MEDS: LACTULOSE 20G/30ML UDC PO SCH ×3 (05:29→21:25)
[2019-05-20] MEDS: CARBIDOPA/LEVODOPA 25/250MG TABLET PO SCH ×3 (05:30→21:23)
[2019-05-20] MEDS: HYDROMORPHONE HCL/PF 2MG/ML CPJ IV PRN ×2 (05:31→21:25)
[2019-05-20] MEDS: DEXT 5%/0.45% NACL 1000ML 1,000 ML IV SCH (05:43)
[2019-05-20 06:24] LABS: BASOPHILS % 0.3 % (0.0-2.0); EOSINOPHILS % 1.6 % (0.0-5.0); HEMOGLOBIN. 12.4 g/dL (14.0-18.0); LYMPHOCYTES % 11.2 % (20.0-50.0); MEAN CORPUSCULAR HEMOGLOBIN 28.8 pg (28.0-32.0); MEAN CORPUSCULAR VOLUME 85.9 fL (80.0-94.0); MEAN PLATELET VOLUME 7.2 fl (7.4-10.4); MONOCYTES % 12.4 % (2.0-8.0); NEUTROPHILS % 74.5 % (40.0-76.0); PLATELET 212 x1000/uL (130-400); RED BLOOD CELL COUNT 4.31 mill/uL (4.7-6.1); RED CELL DISTRIBUTION WIDTH 16.3 % (11.6-14.6)
[2019-05-20 08:00] VITALS: BP 162/100
[2019-05-20] MEDS: FAMOTIDINE 20MG TABLET PO SCH ×2 (09:12→21:23)
[2019-05-20] MEDS: GABAPENTIN 100MG CAPSULE PO SCH ×2 (09:12→17:41)
[2019-05-20] MEDS: FLUOXETINE HCL 20MG CAPSULE PO SCH (09:12)
[2019-05-20] MEDS: BUSPIRONE HCL 10MG TABLET PO SCH ×2 (09:13→21:24)
[2019-05-20 11:25] VITALS: BP 140/89
[2019-05-20 16:00] VITALS: BP 148/83
[2019-05-20] MEDS: DAPTOMYCIN 675 MG in SODIUM CHLORIDE 0.9% 100 ML IV SCH (16:33)
[2019-05-20 20:00] VITALS: BP 123/80
[2019-05-20 20:26] LABS: CREATINE KINASE 49 IU/L (39-308)
[2019-05-21] VITALS: BP 121/75
[2019-05-21] MEDS: METOCLOPRAMIDE HCL 10MG/2ML VIAL IV SCH ×2 (00:46→21:10)
[2019-05-21 04:00] VITALS: BP 147/76
[2019-05-21] MEDS: CARBIDOPA/LEVODOPA 25/250MG TABLET PO SCH ×3 (05:25→21:09)
[2019-05-21] MEDS: DEXT 5%/0.45% NACL 1000ML 1,000 ML IV SCH ×2 (05:25→16:19)
[2019-05-21] MEDS: LACTULOSE 20G/30ML UDC PO SCH ×3 (05:30→21:10)
[2019-05-21 08:00] VITALS: BP 155/88
[2019-05-21] MEDS: FLUOXETINE HCL 20MG CAPSULE PO SCH (08:33)
[2019-05-21] MEDS: GABAPENTIN 100MG CAPSULE PO SCH ×2 (08:33→16:21)
[2019-05-21] MEDS: FAMOTIDINE 20MG TABLET PO SCH (08:34)
[2019-05-21] MEDS: ONDANSETRON HCL 4MG/2ML INJ IV PRN (08:38)
[2019-05-21] MEDS: HYDROMORPHONE HCL/PF 2MG/ML CPJ IV PRN ×2 (08:46→17:13)
[2019-05-21 12:00] VITALS: BP 149/93
[2019-05-21 16:00] VITALS: BP 153/91
[2019-05-21] MEDS: DAPTOMYCIN 675 MG in SODIUM CHLORIDE 0.9% 100 ML IV SCH (16:19)
[2019-05-21 20:00] VITALS: BP 123/94
[2019-05-22] VITALS: BP 144/82
[2019-05-22] MEDS: DEXT 5%/0.45% NACL 1000ML 1,000 ML IV SCH ×2 (01:50→11:19)
[2019-05-22] MEDS: HYDROMORPHONE HCL/PF 2MG/ML CPJ IV PRN ×4 (03:10→22:25)
[2019-05-22 04:00] VITALS: BP 149/90
[2019-05-22] MEDS: CARBIDOPA/LEVODOPA 25/250MG TABLET PO SCH ×3 (06:07→22:25)
[2019-05-22] MEDS: LACTULOSE 20G/30ML UDC PO SCH ×3 (06:07→22:25)
[2019-05-22 08:00] VITALS: BP 164/79
[2019-05-22] MEDS: FLUOXETINE HCL 20MG CAPSULE PO SCH (08:46)
[2019-05-22] MEDS: FAMOTIDINE 20MG TABLET PO SCH (08:46)
[2019-05-22] MEDS: ONDANSETRON HCL 4MG/2ML INJ IV PRN (08:47)
[2019-05-22] MEDS: GABAPENTIN 100MG CAPSULE PO SCH ×2 (08:55→18:13)
[2019-05-22 09:48] LABS: BASOPHILS % 0.4 % (0.0-2.0); HEMATOCRIT. 36.7 % (42.0-52.0); HEMOGLOBIN. 12.3 g/dL (14.0-18.0); LYMPHOCYTES % 8.1 % (20.0-50.0); MEAN CORPUSCULAR HEMOGLOBIN 28.9 pg (28.0-32.0); MEAN PLATELET VOLUME 6.9 fl (7.4-10.4); MONOCYTES % 7.9 % (2.0-8.0); NEUTROPHILS % 82.6 % (40.0-76.0); PLATELET 183 x1000/uL (130-400); RED BLOOD CELL COUNT 4.27 mill/uL (4.7-6.1); RED CELL DISTRIBUTION WIDTH 16.1 % (11.6-14.6)
[2019-05-22 12:00] VITALS: BP 116/66
[2019-05-22] MEDS: METOCLOPRAMIDE HCL 10MG/2ML VIAL IV SCH ×2 (13:42→18:07)
[2019-05-22 16:00] VITALS: BP 118/75
[2019-05-22] MEDS: DAPTOMYCIN 675 MG in SODIUM CHLORIDE 0.9% 100 ML IV SCH (18:07)
[2019-05-22 20:00] VITALS: BP 150/91
[2019-05-23] VITALS: BP 159/91
[2019-05-23 02:07] LABS: CREATININE URINE (RAW) 37.4 mg/dl
[2019-05-23 02:10] LABS: CREATININE URINE 24 HR 1159.4 mg/24hr (800-2000)
[2019-05-23] MEDS: METOCLOPRAMIDE HCL 10MG/2ML VIAL IV SCH ×4 (03:02→17:27)
[2019-05-23] MEDS: DEXT 5%/0.45% NACL 1000ML 1,000 ML IV SCH ×3 (03:03→17:48)
[2019-05-23 04:00] VITALS: BP 153/94
[2019-05-23] MEDS: HYDROMORPHONE HCL/PF 2MG/ML CPJ IV PRN (04:45)
[2019-05-23] MEDS: LACTULOSE 20G/30ML UDC PO SCH ×3 (05:21→22:00)
[2019-05-23] MEDS: CARBIDOPA/LEVODOPA 25/250MG TABLET PO SCH ×3 (05:22→21:51)
[2019-05-23 06:43] LABS: BASOPHILS % 0.5 % (0.0-2.0); EOSINOPHILS % 3.4 % (0.0-5.0); HEMATOCRIT. 36.7 % (42.0-52.0); HEMOGLOBIN. 12.2 g/dL (14.0-18.0); LYMPHOCYTES % 19.6 % (20.0-50.0); MEAN CORPUSCULAR HEMOGLOBIN 29.4 pg (28.0-32.0); MEAN CORPUSCULAR VOLUME 88.4 fL (80.0-94.0); MONOCYTES % 11.7 % (2.0-8.0); NEUTROPHILS % 64.8 % (40.0-76.0); RED BLOOD CELL COUNT 4.15 mill/uL (4.7-6.1); RED CELL DISTRIBUTION WIDTH 16.2 % (11.6-14.6)
[2019-05-23 08:00] VITALS: BP 162/92
[2019-05-23] MEDS: ONDANSETRON HCL 4MG/2ML INJ IV PRN (08:41)
[2019-05-23] MEDS: FAMOTIDINE 20MG TABLET PO SCH (08:41)
[2019-05-23] MEDS: FLUOXETINE HCL 20MG CAPSULE PO SCH (08:41)
[2019-05-23] MEDS: GABAPENTIN 100MG CAPSULE PO SCH ×2 (08:42→17:27)
[2019-05-23 08:50] LABS: MEAN PLATELET VOLUME 7.5 fl (7.4-10.4); PLATELET 147 x1000/uL (130-400)
[2019-05-23 09:06] LABS: COMPLEMENT C3 89 mg/dL (82-167)
[2019-05-23 12:00] VITALS: BP 145/89
[2019-05-23 20:00] VITALS: BP 158/84
[2019-05-23] MEDS: ACETAMINOPHEN 325MG TABLET PO PRN (21:51)
[2019-05-24] VITALS: BP 159/100
[2019-05-24 04:00] VITALS: BP 128/85
[2019-05-24] MEDS: DEXT 5%/0.45% NACL 1000ML 1,000 ML IV SCH ×2 (04:24→12:35)
[2019-05-24] MEDS: METOCLOPRAMIDE HCL 10MG/2ML VIAL IV SCH ×3 (04:24→12:32)
[2019-05-24] MEDS: LACTULOSE 20G/30ML UDC PO SCH ×2 (06:00→14:00)
[2019-05-24] MEDS: CARBIDOPA/LEVODOPA 25/250MG TABLET PO SCH ×2 (07:02→14:28)
[2019-05-24 08:00] VITALS: BP 134/96
[2019-05-24] MEDS: FLUOXETINE HCL 20MG CAPSULE PO SCH (08:50)
[2019-05-24] MEDS: FAMOTIDINE 20MG TABLET PO SCH (08:50)
[2019-05-24] MEDS: GABAPENTIN 100MG CAPSULE PO SCH (08:50)
[2019-05-24 11:41] LABS: BASOPHILS % 0.7 % (0.0-2.0); EOSINOPHILS % 2.3 % (0.0-5.0); HEMATOCRIT. 37.2 % (42.0-52.0); HEMOGLOBIN. 12.6 g/dL (14.0-18.0); LYMPHOCYTES % 15.8 % (20.0-50.0); MEAN CORPUSCULAR VOLUME 86.1 fL (80.0-94.0); MEAN PLATELET VOLUME 7.1 fl (7.4-10.4); MONOCYTES % 8.8 % (2.0-8.0); NEUTROPHILS % 72.4 % (40.0-76.0); PLATELET 208 x1000/uL (130-400); RED BLOOD CELL COUNT 4.33 mill/uL (4.7-6.1)
[2019-05-24 12:00] VITALS: BP 145/80
[2019-05-24 13:31] VITALS: BP 134/96
[2019-05-24 17:06] LABS: ANTI-NUCLEAR ANTIBODIES DIRECT Negative (Negative)
== END 2019-05-24 15:00 | disposition home or self-care (01) | DRG 720 ==
LOC: ER 20:19 → 6EST 05-15 05:33 → EDBEDREQTM 05-15 05:39 → EDBEDREQ 05-15 05:39 → ENRESERV 05-15 07:17 → 6EST 05-15 10:45
PROVIDERS: ADMIT Internal Medicine; ATTEND Internal Medicine
PROC: 02HV33Z Insertion of Infusion Device into Superior Vena Cava, Percutaneous Approach (ICD-10-PCS; principal; 2019-05-16)
PROC: B548ZZA Ultrasonography of Superior Vena Cava, Guidance (ICD-10-PCS; 2019-05-16)
PROC: B5181ZA Fluoroscopy of Superior Vena Cava using Low Osmolar Contrast, Guidance (ICD-10-PCS; 2019-05-16)
DX: A41.1 Sepsis due to other specified staphylococcus (principal); K56.600 Partial intestinal obstruction, unspecified as to cause; K59.39 Other megacolon; N17.9 Acute kidney failure, unspecified; K56.7 Ileus, unspecified; E87.8 Other disorders of electrolyte and fluid balance, not elsewhere classified; E66.01 Morbid (severe) obesity due to excess calories; E11.9 Type 2 diabetes mellitus without complications; D63.8 Anemia in other chronic diseases classified elsewhere; G20 Parkinson's disease; D64.9 Anemia, unspecified; K56.41 Fecal impaction; I10 Essential (primary) hypertension; E87.6 Hypokalemia; F17.210 Nicotine dependence, cigarettes, uncomplicated; F32.9 Major depressive disorder, single episode, unspecified; F41.9 Anxiety disorder, unspecified; T36.8X5A Adverse effect of other systemic antibiotics, initial encounter; T36.0X5A Adverse effect of penicillins, initial encounter; G40.909 Epilepsy, unspecified, not intractable, without status epilepticus; Z60.2 Problems related to living alone; F10.20 Alcohol dependence, uncomplicated; Z79.899 Other long term (current) drug therapy; Z68.34 Body mass index [BMI] 34.0-34.9, adult; Z79.01 Long term (current) use of anticoagulants; Z71.3 Dietary counseling and surveillance; Y92.89 Other specified places as the place of occurrence of the external cause
CPT/HCPCS: 36415; 36573; 71045; 74018; 74177; 76770; 76937; 80048; 80202; 80305; 80320; 81003; 82550; 82570; 82575; 82962; 84145; 84300; 86038; 86160; 90686; 93306; 96361; 96374; 96375; 97162; 99285; C1725; J0878; J1170; J2270; J2405; J2543; J2765; J3370; J3480; J7030; J7050; J7060; Q9963; Q9967; G0480

== ENCOUNTER 2020-04-23 13:40 | Emergency (ER) | payer MEDICAID ==
[~2020-04-23] VITALS: Ht 177.8 cm; Wt 90.0 kg
[~2020-04-23 13:40] MED LIST changes: -BUSP-29 PO; +BUSP10TA4 PO; +CARB1TAB2 MT; +CYCL10TA7
[2020-04-23] MEDS ORDERED: FLUO40CA8 PO (13:51)
[2020-04-23] MEDS ORDERED: AM10 GT (13:51)
[2020-04-23] MEDS ORDERED: CARB1TAB5 PO (13:51)
[2020-04-23] MEDS ORDERED: NALT380S2 IM (13:51)
[2020-04-23] MEDS ORDERED: GABA-290 PO (13:51)
[2020-04-23] MEDS ORDERED: LURA60TA PO (13:51)
[2020-04-23] MEDS ORDERED: FOLIC ACID 1 MG, THIAMINE HCL 100 MG, MVI, ADULT NO.1 10 ML in DEXTROSE 5% WATER 1,000 ML IV ONE ×4 (15:00)
[2020-04-23] MEDS ORDERED: ONDANSETRON HCL 4MG/2ML INJ IV ONE (15:00)
[2020-04-23 15:16] LABS: BASOPHILS % 0.6 % (0.0-2.0); EOSINOPHILS % 1.8 % (0.0-5.0); HEMATOCRIT. 38.1 % (42.0-52.0); HEMOGLOBIN. 13.2 g/dL (14.0-18.0); LYMPHOCYTES % 22.4 % (20.0-50.0); MEAN CORPUSCULAR HEMOGLOBIN 31.2 pg (28.0-32.0); MEAN CORPUSCULAR VOLUME 90.3 fL (80.0-94.0); MEAN PLATELET VOLUME 6.6 fl (7.4-10.4); NEUTROPHILS % 65.2 % (40.0-76.0); PLATELET 187 x1000/uL (130-400); RED BLOOD CELL COUNT 4.22 mill/uL (4.7-6.1); RED CELL DISTRIBUTION WIDTH 14.9 % (11.6-14.6)
[2020-04-23 15:19] LABS: CHLORIDE 106 mEq/L (98-107)
[2020-04-23 15:24] LABS: ETHANOL BLOOD 117 mg/dL
[2020-04-23 16:37] LABS: CLARITY URINE CLEAR (CLEAR); COLOR URINE YELLOW (YELLOW); KETONES URINE NEGATIVE (NEGATIVE); LEUKOCYTE ESTERASE URINE NEGATIVE (NEGATIVE); NITRITE URINE NEGATIVE (NEGATIVE); OCCULT BLOOD URINE NEGATIVE (NEGATIVE); PH URINE 5.5 (4.5-8.0); PROTEIN URINE NEGATIVE (NEGATIVE); SPECIFIC GRAVITY URINE 1.011 (1.005-1.030)
[2020-04-23] MEDS ORDERED: LORAZEPAM 1MG TABLET PO ONE (16:45)
[2020-04-23 16:59] LABS: *BARBITURATES SCREEN URINE NEGATIVE (NEGATIVE); *BENZODIAZEPINES SCREEN URINE PRESUMTIVE POSITIVE (NEGATIVE)
[2020-04-23 17:00] LABS: *AMPHETAMINES SCREEN URINE NEGATIVE (NEGATIVE); *COCAINE SCREEN URINE NEGATIVE (NEGATIVE); CANNABINOID URINE SCREEN PRESUMTIVE POSITIVE (NEGATIVE); METHADONE URINE SCREEN NEGATIVE (NEGATIVE); OPIATES URINE SCREEN NEGATIVE (NEGATIVE); PHENCYCLIDINE URINE SCREEN NEGATIVE (NEGATIVE)
[2020-04-23 18:15] VITALS: BP 131/89
[2020-05-01] MEDS ORDERED: FOLI-43 PO (08:01)
[2020-05-01] MEDS ORDERED: L25 MT (08:01)
[2020-05-01] MEDS ORDERED: MULT-1116 MT (08:01)
[2020-05-01] MEDS ORDERED: THIA100T72 PO (08:01)
== END 2020-04-23 18:22 | disposition home or self-care (01) ==
LOC: MERGE 14:08 → ER 14:08
DX: F10.129 Alcohol abuse with intoxication, unspecified (principal); D64.9 Anemia, unspecified; Z79.899 Other long term (current) drug therapy; Y90.5 Blood alcohol level of 100-119 mg/100 ml
CPT/HCPCS: 36415; 80053; 80305; 80307; 80320; 80329; 81003; 83690; 85025; 93005; 96365; 96375; 99284; J2405; J3411; J3490; J7070; G0480

== ENCOUNTER 2020-11-11 13:19 | Emergency (ER) | payer MEDICAID ==
[~2020-11-11] VITALS: Ht 175.3 cm; Wt 86.0 kg
[~2020-11-11 13:19] MED LIST changes: +AMIT10TA7 GT; +CARB1TAB5 PO; -CYAN500T66 PO; +CYAN500T9 PO; +FLUO40CA8 PO; +FOLI-43 PO; +GABA-290 MT; +LURA60TA PO; +MULT-1116 MT; +NALT380S2 IM; +THIA100T72 PO
[2020-11-11] MEDS ORDERED: LORAZEPAM 0.5MG TABLET PO ONE (15:00)
[2020-11-11 16:14] LABS: BASOPHILS % 0.5 % (0.0-2.0); HEMATOCRIT. 44.5 % (42.0-52.0); HEMOGLOBIN. 14.5 g/dL (14.0-18.0); LYMPHOCYTES % 18.4 % (20.0-50.0); MEAN CORPUSCULAR HEMOGLOBIN 31.3 pg (28.0-32.0); MEAN CORPUSCULAR VOLUME 96.2 fL (80.0-94.0); MEAN PLATELET VOLUME 6.8 fl (7.4-10.4); MONOCYTES % 5.6 % (2.0-8.0); NEUTROPHILS % 74.5 % (40.0-76.0); PLATELET 173 x1000/uL (130-400); RED BLOOD CELL COUNT 4.63 mill/uL (4.7-6.1); RED CELL DISTRIBUTION WIDTH 15.7 % (11.6-14.6)
[2020-11-11 16:53] LABS: CHLORIDE 112 mEq/L (98-107)
[2020-11-11 16:57] LABS: ETHANOL BLOOD 201 mg/dL
[2020-11-11] MEDS ORDERED: CHLORDIAZEPOXIDE 25MG CAPSULE PO ONE (18:15)
[2020-11-11 20:10] VITALS: BP 123/80
[2020-11-11 20:14] LABS: CLARITY URINE CLEAR (CLEAR); COLOR URINE YELLOW (YELLOW); KETONES URINE 1+ (NEGATIVE); LEUKOCYTE ESTERASE URINE NEGATIVE (NEGATIVE); NITRITE URINE NEGATIVE (NEGATIVE); OCCULT BLOOD URINE TRACE (NEGATIVE); PROTEIN URINE NEGATIVE (NEGATIVE); SPECIFIC GRAVITY URINE 1.022 (1.005-1.030); UROBILINOGEN URINE 0.2 E.U./dL (0.2-1.0)
[2020-11-11 20:27] LABS: *AMPHETAMINES SCREEN URINE NEGATIVE (NEGATIVE); *BARBITURATES SCREEN URINE NEGATIVE (NEGATIVE); *BENZODIAZEPINES SCREEN URINE PRESUMTIVE POSITIVE (NEGATIVE); *COCAINE SCREEN URINE PRESUMTIVE POSITIVE (NEGATIVE); CANNABINOID URINE SCREEN PRESUMTIVE POSITIVE (NEGATIVE); METHADONE URINE SCREEN NEGATIVE (NEGATIVE); OPIATES URINE SCREEN NEGATIVE (NEGATIVE)
[2020-11-11 20:28] LABS: PHENCYCLIDINE URINE SCREEN NEGATIVE (NEGATIVE)
== END 2020-11-11 20:11 | disposition home or self-care (01) ==
LOC: ER 13:27
DX: T51.0X1A Toxic effect of ethanol, accidental (unintentional), initial encounter (principal); F10.129 Alcohol abuse with intoxication, unspecified; E11.9 Type 2 diabetes mellitus without complications; I11.9 Hypertensive heart disease without heart failure; Z98.890 Other specified postprocedural states; Z79.899 Other long term (current) drug therapy; Y92.89 Other specified places as the place of occurrence of the external cause; Y90.9 Presence of alcohol in blood, level not specified
CPT/HCPCS: 36415; 80053; 80305; 80320; 81003; 85025; 99283; G0480

== ENCOUNTER 2020-11-21 12:29 | Emergency (ER) | payer MEDICAID ==
[~2020-11-21] VITALS: Ht 177.8 cm; Wt 127.0 kg
[2020-11-21 14:05] VITALS: BP 125/76
[2020-11-21 14:18] LABS: CLARITY URINE CLEAR (CLEAR); COLOR URINE YELLOW (YELLOW); KETONES URINE NEGATIVE (NEGATIVE); LEUKOCYTE ESTERASE URINE NEGATIVE (NEGATIVE); NITRITE URINE NEGATIVE (NEGATIVE); OCCULT BLOOD URINE NEGATIVE (NEGATIVE); PROTEIN URINE NEGATIVE (NEGATIVE); SPECIFIC GRAVITY URINE 1.014 (1.005-1.030); UROBILINOGEN URINE 0.2 E.U./dL (0.2-1.0)
[2020-11-21 15:22] LABS: *AMPHETAMINES SCREEN URINE NEGATIVE (NEGATIVE); *BARBITURATES SCREEN URINE NEGATIVE (NEGATIVE); *BENZODIAZEPINES SCREEN URINE PRESUMTIVE POSITIVE (NEGATIVE); *COCAINE SCREEN URINE NEGATIVE (NEGATIVE)
[2020-11-21 15:23] LABS: CANNABINOID URINE SCREEN PRESUMTIVE POSITIVE (NEGATIVE); METHADONE URINE SCREEN NEGATIVE (NEGATIVE); OPIATES URINE SCREEN NEGATIVE (NEGATIVE); PHENCYCLIDINE URINE SCREEN NEGATIVE (NEGATIVE)
== END 2020-11-22 18:12 | disposition left against medical advice (07) ==
LOC: ER 12:29 → CANBEDREQ 15:40 → ER 11-22 18:12
DX: F10.229 Alcohol dependence with intoxication, unspecified (principal); E11.9 Type 2 diabetes mellitus without complications; G40.909 Epilepsy, unspecified, not intractable, without status epilepticus; I11.9 Hypertensive heart disease without heart failure; F12.10 Cannabis abuse, uncomplicated; Y90.7 Blood alcohol level of 200-239 mg/100 ml; Z98.890 Other specified postprocedural states
CPT/HCPCS: 80305; 81003; 99283

== ENCOUNTER 2020-11-22 10:01 | Emergency (ER) | payer MEDICAID ==
[~2020-11-22] VITALS: Ht 172.7 cm; Wt 94.0 kg
[2020-11-22 11:26] LABS: BASOPHILS % 0.4 % (0.0-2.0); EOSINOPHILS % 0.7 % (0.0-5.0); HEMATOCRIT. 37.6 % (42.0-52.0); HEMOGLOBIN. 12.7 g/dL (14.0-18.0); LYMPHOCYTES % 22.3 % (20.0-50.0); MEAN CORPUSCULAR HEMOGLOBIN 30.6 pg (28.0-32.0); MEAN CORPUSCULAR VOLUME 90.4 fL (80.0-94.0); MEAN PLATELET VOLUME 6.8 fl (7.4-10.4); MONOCYTES % 9.3 % (2.0-8.0); NEUTROPHILS % 67.3 % (40.0-76.0); PLATELET 207 x1000/uL (130-400); RED BLOOD CELL COUNT 4.16 mill/uL (4.7-6.1); RED CELL DISTRIBUTION WIDTH 15.2 % (11.6-14.6)
[2020-11-22 11:32] LABS: CHLORIDE 108 mEq/L (98-107)
[2020-11-22 11:36] LABS: ETHANOL BLOOD 186 mg/dL
[2020-11-22 12:57] VITALS: BP 124/75
== END 2020-11-22 12:45 | disposition home or self-care (01) ==
LOC: ER 10:01
DX: F10.229 Alcohol dependence with intoxication, unspecified (principal); G40.909 Epilepsy, unspecified, not intractable, without status epilepticus; E11.9 Type 2 diabetes mellitus without complications; I11.9 Hypertensive heart disease without heart failure; Y90.6 Blood alcohol level of 120-199 mg/100 ml; Z88.5 Allergy status to narcotic agent
CPT/HCPCS: 36415; 71045; 80053; 80320; 83880; 84484; 85025; 93005; 99285; G0480

== ENCOUNTER 2020-11-22 15:10 | Emergency (ER) | payer MEDICAID ==
[~2020-11-22] VITALS: Ht 185.4 cm; Wt 104.0 kg
[2020-11-22 15:14] VITALS: BP 106/58
== END 2020-11-22 19:00 | disposition home or self-care (01) ==
LOC: ER 15:10
DX: F10.229 Alcohol dependence with intoxication, unspecified (principal); G40.909 Epilepsy, unspecified, not intractable, without status epilepticus; I11.9 Hypertensive heart disease without heart failure; Y90.9 Presence of alcohol in blood, level not specified; Z88.5 Allergy status to narcotic agent
CPT/HCPCS: 99283

== ENCOUNTER 2020-12-24 21:05 | Emergency (ER) | payer MEDICAID ==
[~2020-12-24] VITALS: Ht 172.7 cm; Wt 96.0 kg
[2020-12-24] MEDS ORDERED: ONDANSETRON HCL 4MG/2ML INJ IV STA (22:49)
[2020-12-24] MEDS ORDERED: SODIUM CHLORIDE 0.9% 1,000 ML IV ONE (23:00)
[2020-12-25 00:14] LABS: BASOPHILS % 0.4 % (0.0-2.0); EOSINOPHILS % 2.2 % (0.0-5.0); HEMATOCRIT. 37.6 % (42.0-52.0); HEMOGLOBIN. 12.9 g/dL (14.0-18.0); MEAN CORPUSCULAR HEMOGLOBIN 30.8 pg (28.0-32.0); MEAN CORPUSCULAR VOLUME 89.5 fL (80.0-94.0); MEAN PLATELET VOLUME 6.6 fl (7.4-10.4); MONOCYTES % 7.5 % (2.0-8.0); NEUTROPHILS % 54.9 % (40.0-76.0); PLATELET 181 x1000/uL (130-400); RED CELL DISTRIBUTION WIDTH 15.2 % (11.6-14.6)
[2020-12-25 00:21] LABS: CHLORIDE 106 mEq/L (98-107)
[2020-12-25 00:26] LABS: ETHANOL BLOOD 249 mg/dL
[2020-12-25 01:47] LABS: *AMPHETAMINES SCREEN URINE NEGATIVE (NEGATIVE); *BARBITURATES SCREEN URINE NEGATIVE (NEGATIVE); CANNABINOID URINE SCREEN NEGATIVE (NEGATIVE); METHADONE URINE SCREEN NEGATIVE (NEGATIVE); OPIATES URINE SCREEN NEGATIVE (NEGATIVE); PHENCYCLIDINE URINE SCREEN NEGATIVE (NEGATIVE)
[2020-12-25 01:48] LABS: *BENZODIAZEPINES SCREEN URINE NEGATIVE (NEGATIVE); *COCAINE SCREEN URINE NEGATIVE (NEGATIVE)
[2020-12-25 04:00] VITALS: BP 109/75
== END 2020-12-25 04:10 | disposition home or self-care (01) ==
LOC: ER 21:15
DX: T51.0X1A Toxic effect of ethanol, accidental (unintentional), initial encounter (principal); F10.129 Alcohol abuse with intoxication, unspecified; E11.9 Type 2 diabetes mellitus without complications; I11.9 Hypertensive heart disease without heart failure; R56.9 Unspecified convulsions; Z79.899 Other long term (current) drug therapy; Z88.6 Allergy status to analgesic agent; Z88.8 Allergy status to other drugs, medicaments and biological substances; Y92.89 Other specified places as the place of occurrence of the external cause; Y90.8 Blood alcohol level of 240 mg/100 ml or more
CPT/HCPCS: 36415; 80053; 80305; 80320; 85025; 96360; 99285; J7030; G0480

== ENCOUNTER 2021-04-29 17:48 | Emergency (ER) | payer MEDICAID, OTHER ==
[~2021-04-29] VITALS: Ht 170.2 cm; Wt 100.0 kg
[2021-04-29 17:53] VITALS: BP 131/81
[2021-04-29] MEDS ORDERED: FOLIC ACID 1 MG, THIAMINE HCL 100 MG, MVI, ADULT NO.1 10 ML in DEXTROSE 5% WATER 1,000 ML IV ONE (18:15)
== END 2021-04-29 18:30 | disposition left against medical advice (07) ==
LOC: ER 17:48
DX: F10.229 Alcohol dependence with intoxication, unspecified (principal); Y90.9 Presence of alcohol in blood, level not specified
CPT/HCPCS: 99283; J3411; J3490; J7070

== ENCOUNTER 2021-09-13 04:51 | Emergency (ER) | payer MEDICAID, OTHER ==
[~2021-09-13] VITALS: Ht 170.2 cm; Wt 73.0 kg
[2021-09-13 06:24] LABS: CHLORIDE 109 mEq/L (98-107)
[2021-09-13 06:28] LABS: ETHANOL BLOOD 184 mg/dL
[2021-09-13] MEDS ORDERED: IBUP-2028 PO (06:39)
[2021-09-13 06:49] LABS: BASOPHILS % 0.3 % (0.0-2.0); EOSINOPHILS % 0.3 % (0.0-5.0); HEMOGLOBIN. 14.4 g/dL (14.0-18.0); LYMPHOCYTES % 11.5 % (20.0-50.0); MEAN CORPUSCULAR HEMOGLOBIN 30.1 pg (28.0-32.0); MEAN CORPUSCULAR VOLUME 87.6 fL (80.0-94.0); MEAN PLATELET VOLUME 6.8 fl (7.4-10.4); MONOCYTES % 7.1 % (2.0-8.0); NEUTROPHILS % 80.8 % (40.0-76.0); PLATELET 188 x1000/uL (130-400); RED BLOOD CELL COUNT 4.79 mill/uL (4.7-6.1); RED CELL DISTRIBUTION WIDTH 13.9 % (11.6-14.6)
[2021-09-13 07:45] VITALS: BP 122/63
== END 2021-09-13 07:47 | disposition home or self-care (01) ==
LOC: ER 04:51
DX: F10.129 Alcohol abuse with intoxication, unspecified (principal); I10 Essential (primary) hypertension; E11.9 Type 2 diabetes mellitus without complications; J45.909 Unspecified asthma, uncomplicated; Z88.9 Allergy status to unspecified drugs, medicaments and biological substances; Z88.5 Allergy status to narcotic agent; Z79.899 Other long term (current) drug therapy; Y90.6 Blood alcohol level of 120-199 mg/100 ml
CPT/HCPCS: 36415; 80053; 80320; 85025; 99283; G0480

== ENCOUNTER 2021-12-05 16:29 | Emergency (ER) | payer MEDICAID ==
[~2021-12-05] VITALS: Ht 182.9 cm; Wt 113.0 kg
[~2021-12-05 16:29] MED LIST changes: +IBUP-2028 PO
[2021-12-05] MEDS ORDERED: SODIUM CHLORIDE 0.9% 1,000 ML IV NR (17:30)
[2021-12-05 20:00] VITALS: BP 120/60
== END 2021-12-05 20:00 | disposition home or self-care (01) ==
LOC: ER 16:29
DX: F10.229 Alcohol dependence with intoxication, unspecified (principal); I95.89 Other hypotension; I45.2 Bifascicular block; Y90.9 Presence of alcohol in blood, level not specified
CPT/HCPCS: 93005; 96360; 99283

== ENCOUNTER 2021-12-18 18:20 | Emergency (ER) | payer MEDICAID ==
[~2021-12-18] VITALS: Ht 177.8 cm; Wt 100.0 kg
[2021-12-18 18:27] VITALS: BP 99/47
[2021-12-18] MEDS ORDERED: SODIUM CHLORIDE 0.9% 1000ML BAG (SEPSIS BOLUS) IV ONE (20:00)
== END 2021-12-18 20:00 | disposition left against medical advice (07) ==
LOC: ER 18:20 → CANBEDREQ 12-19 02:00
DX: R55 Syncope and collapse (principal); I95.9 Hypotension, unspecified; I44.4 Left anterior fascicular block; I45.2 Bifascicular block
CPT/HCPCS: 93005; 99283; J7030

== ENCOUNTER 2022-01-05 14:58 | Emergency (ER) | payer MEDICAID ==
[~2022-01-05] VITALS: Ht 172.7 cm; Wt 100.0 kg
[~2022-01-05 14:58] MED LIST changes: +CYCL10TA21; -CYCL10TA7
[2022-01-05 17:06] VITALS: BP 126/76
== END 2022-01-05 20:18 | disposition home or self-care (01) ==
LOC: ER 14:58
DX: F10.229 Alcohol dependence with intoxication, unspecified (principal); Y90.0 Blood alcohol level of less than 20 mg/100 ml; J45.909 Unspecified asthma, uncomplicated; E11.9 Type 2 diabetes mellitus without complications; I10 Essential (primary) hypertension
CPT/HCPCS: 99283

== ENCOUNTER 2022-03-01 16:40 | Emergency (ER) | payer MEDICAID, OTHER ==
[~2022-03-01] VITALS: Ht 175.3 cm; Wt 81.6 kg
[2022-03-01 16:43] VITALS: BP 112/66
== END 2022-03-01 19:18 | disposition left against medical advice (07) ==
LOC: ER 16:40
DX: F10.10 Alcohol abuse, uncomplicated (principal); Y90.9 Presence of alcohol in blood, level not specified
CPT/HCPCS: 99283